=== PATIENT | male | born 1985 | race African-American/Black ===

== ENCOUNTER 2018-05-02 21:52 | Emergency (ER) | payer MEDICAID ==
[~2018-05-02] VITALS: Ht 175.3 cm; Wt 92.3 kg
[2018-05-02] MEDS ORDERED: ACETAMINOPHEN 325MG TABLET PO ONE (23:15)
[2018-05-02] MEDS ORDERED: LIDOCAINE HCL/PF 1% 10 MG/ML 5ML VIAL IJ ONE (23:15)
[2018-05-03] MEDS ORDERED: IBUPROFEN 800MG TABLET PO ONE (01:00)
[2018-05-03 01:01] VITALS: BP 119/82
== END 2018-05-03 01:09 | disposition home or self-care (01) ==
LOC: ER 21:52
DX: L02.214 Cutaneous abscess of groin (principal); F12.10 Cannabis abuse, uncomplicated; F17.200 Nicotine dependence, unspecified, uncomplicated; Z98.890 Other specified postprocedural states
CPT/HCPCS: 10060; 99283; J3490; Z7610